=== PATIENT | female | born 1950 ===

== ENCOUNTER 2018-01-03 11:05 | Emergency (ER) | payer OTHER ==
[~2018-01-03] VITALS: Ht 157.5 cm; Wt 59.9 kg
[2018-01-03] MEDS ORDERED: CRESTOR10 MG PO (11:19)
[2018-01-03] MEDS ORDERED: NAPROXEN500 M1 PO (11:20)
[2018-01-03] MEDS ORDERED: SENOKOT8.6 M1 PO (11:20)
[2018-01-03] MEDS ORDERED: MEDROLPACK PO (14:10)
[2018-01-03] MEDS ORDERED: NORFLEX100MG PO (14:10)
[2018-01-03] MEDS ORDERED: KETO10TA2 PO (14:10)
== END 2018-01-03 14:42 | disposition home or self-care (01) ==
LOC: ER 11:05
DX: M54.5 Low back pain (principal)

== ENCOUNTER → 2018-01-04 | Outpatient (CLI) | payer OTHER ==
[~2018-01-04] MED LIST: CRESTOR10 MG PO; KETO10TA2 PO; MEDROLPACK PO; NAPROXEN500 M1 PO; NORFLEX100MG PO; SENOKOT8.6 M1 PO
== END | disposition home or self-care (01) ==
LOC: MRI 15:00
DX: M54.89 Other dorsalgia (principal)
CPT/HCPCS: 72148

== ENCOUNTER → 2018-02-21 | Emergency (ER) | payer OTHER ==
[~2018-02-21] VITALS: Ht 157.5 cm; Wt 60.8 kg
[~2018-02-21] MED LIST changes: +CRESTOR10 MG; +PNEU16DI2; +SENOKOT-S TABL1 EACH
== END | disposition home or self-care (01) ==
LOC: ER 15:38
DX: J40 Bronchitis, not specified as acute or chronic (principal); R06.2 Wheezing

== ENCOUNTER 2018-03-07 15:36 | Emergency (ER) | payer OTHER ==
[~2018-03-07] VITALS: Ht 157.5 cm; Wt 61.7 kg
== END 2018-03-07 22:37 | disposition home or self-care (01) ==
LOC: ER 15:36
DX: R05 Cough (principal)

== ENCOUNTER 2018-04-21 06:19 | Outpatient (CLI) | payer OTHER | END 2018-04-21 06:24 | disposition home or self-care (01) | LOC: LAB 06:19 | DX: D32.0 Benign neoplasm of cerebral meninges (principal); Z51.81 Encounter for therapeutic drug level monitoring ==

== ENCOUNTER 2018-04-21 07:24 | Outpatient (CLI) | payer OTHER | END 2018-04-21 07:32 | disposition home or self-care (01) | LOC: MRI 07:24 | DX: D32.0 Benign neoplasm of cerebral meninges (principal); G43.911 Migraine, unspecified, intractable, with status migrainosus | CPT/HCPCS: 70552; A9575 ==

== ENCOUNTER → 2018-09-19 | Outpatient (CLI) | payer OTHER | END | disposition home or self-care (01) | LOC: MRI 12:34 | DX: M54.5 Low back pain (principal) | CPT/HCPCS: 72148 ==

== ENCOUNTER → 2021-06-26 06:35 | Outpatient (CLI) | payer OTHER | END | disposition home or self-care (01) | LOC: LAB 06:35 | PROVIDERS: ATTEND Radiology Vascular & Interventional Radiology | DX: I67.1 Cerebral aneurysm, nonruptured (principal) ==

== ENCOUNTER 2021-06-26 07:36 | Outpatient (CLI) | payer OTHER | END 2021-06-26 07:44 | disposition home or self-care (01) | LOC: TOM 07:36 | PROVIDERS: ATTEND Radiology Vascular & Interventional Radiology | DX: I67.1 Cerebral aneurysm, nonruptured (principal) | CPT/HCPCS: 70498; Q9965 ==

== ENCOUNTER 2021-07-24 09:19 | Outpatient (CLI) | payer OTHER | END 2021-07-24 09:29 | disposition home or self-care (01) | LOC: TOM 09:19 | PROVIDERS: ATTEND Radiology Vascular & Interventional Radiology | DX: I67.1 Cerebral aneurysm, nonruptured (principal) | CPT/HCPCS: 70496; Q9965 ==